=== PATIENT | female | born 1965 | race Hispanic/Latino ===

== ENCOUNTER 2020-06-02 14:13 | Outpatient (CLI) | payer BC, SELFPAY ==
--- NOTE | ~2020-06-02 | US_ITS ---
EXAMINATION: US thyroid DATE: 06/02/2020 14:44 INDICATION: Nontoxic single thyroid nodule TECHNIQUE: Multiple ultrasound images of the thyroid were obtained. COMPARISON: None. FINDINGS: The right thyroid lobe measures 4.8 x 1.6 x 2.1 cm. The left thyroid lobe measures 4.8 x 1.4 x 1.3 c m. The thyroid isthmus measures 1 mm in thickness. There is heterogeneous decreased echogenicity with coarsened echotexture and increased vascular flow throughout the thyroid without a discrete thyroid nodule. IMPRESSION: 1. Diffuse heterogeneously decreased echogenicity throughout the right thyroid consistent with Hashim tonio's thyroiditis without a discrete thyroid nodule. Reviewed, dictated and finalized at location A. IMPRESSION: 1. Diffuse heterogeneously decreased echogenicity throughout the right thyroid consistent with Annemarie's thyroiditis without a discrete thyroid nodule.
== END 2020-06-02 14:14 | disposition home or self-care (01) ==
PROVIDERS: PCP Internal Medicine; Visit Provider Otolaryngology
DX: E04.1 Nontoxic single thyroid nodule (principal)
CPT/HCPCS: 76536

== ENCOUNTER 2020-11-01 15:31 | Emergency (ER) | payer BC, SELFPAY ==
--- NOTE | ~2020-11-01 | XR_ITS ---
EXAMINATION: XR chest 2V DATE: 11/01/2020 15:59 INDICATION: Midsternal chest pain TECHNIQUE: PA and lateral views of the chest are obtained. COMPARISON: None available FINDINGS: The lungs are free of acute opacities. There is no pleural effusion or pneumothorax. The ca rdiomediastinal silhouette is normal. There is mild thoracic spondylosis. IMPRESSION: 1. No acute cardiopulmonary abnormality. Reviewed, dictated and finalized at location A. 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
--- NOTE | 2020-11-01 15:33 | ECG_ITS ---
Measurements Intervals [place] Rate: 70 P: 37 LA: 141 QRS: 20 QRSD: 85 T: 40 QT: 375 QTc: 405 Interpretive Statements SINUS RHYTHM VOLTAGE CRITERIA FOR LVH BORDERLINE ST ABNORMALITY- LATERAL LEADS BASELINE ARTIFACT- I, II, III, AVR, AVL, AVF, V1, V3, V5-V6 BORDERLINE ECG Electronically Signed On 11-02-2020 6:59:11 ANTHROPOLOGIST PHYSICAL by Chung Hogan D.O.
[2020-11-01 15:36] VITALS: BP 190/92; PULSE 73; RESP 23; TEMP 36.4; O2SAT 97
[2020-11-01 15:41] VITALS: PULSE 71
[2020-11-01] MEDS: ASPIRIN 81 MG CHEWABLE TABLET 324 MG PO (15:42)
[2020-11-01 15:46] VITALS: BP 142/83; PULSE 69; RESP 20; O2SAT 97
[2020-11-01 15:48] LABS: Basophils Percent Auto 0.4 % (0.2-1.2); Eosinophils Absolute Auto 0.2 K/mm3 (0-0.3); Hematocrit 45.1 % (37.0-47.0); Hemoglobin 15.1 g/dL (12.0-15.0); Immature Granulocyte Absolute 0.04 K/mm3 (0.00-0.031); Immature Granulocyte Percent A 0.4 % (0-0.5); Lymphocytes Absolute Auto 4.24 K/mm3 (0.9-3.2); Lymphocytes Percent Auto 39.3 % (18.3-44.2); Mean Corpuscular HGB Conc 33.5 g/dl (32-36); Mean Corpuscular Hemoglobin 28.7 pg (26-34); Mean Corpuscular Volume 85.6 fl (80-100); Mean Platelet Volume 11.4 fl (7.4-10.4); Monocytes Absolute Auto 0.7 K/mm3 (0.1-0.6); Monocytes Percent Auto 6.4 % (2.6-8.5); Neutrophils Absolute Auto 5.6 K/mm3 (1.3-6.7); Neutrophils Percent Auto 51.5 % (45.5-73.1); Platelet Count Result 249 k/mm3 (150-375); Red Blood Count 5.27 M/mm3 (4.2-5.4); Red Cell Distribution Width 12.5 % (11.5-14.5); White Blood Count 10.8 K/mm3 (4.5-10.0)
[2020-11-01 15:58] LABS: Prothrombin Time 13.3 Seconds (11.1-14.7)
[2020-11-01 15:59] LABS: Anion Gap 11 mmol/L (8-16); Blood Urea Nitrogen 11 mg/dL (7-17); Calcium 9.7 mg/dL (8.4-10.2); Carbon Dioxide 28 mmol/L (22-30); Chloride 103 mmol/L (98-107); Estimated CRCL calculation 81 ml/min; Estimated Glomerular Filt Rate > 60; Glucose 94 mg/dL (65-105); Partial Thromboplastin Time 28.3 SECONDS (22.3-36.8); Sodium 142 mmol/L (137-145)
[2020-11-01 16:05] VITALS: BP 126/76; PULSE 67; RESP 22; O2SAT 97
[2020-11-01 16:11] LABS: Troponin I < 0.012 ng/mL (0.000-0.034)
--- NOTE | 2020-11-01 16:26 | ED.CHESTPAIN ---
HPI - Chest Pain General Chief Complaint: Chest Pain Stated Complaint: chest pain Time Seen by Provider: 11/01/20 15:39 Source: patient Mode of arrival: ambulatory Limitations: no limitations History of Present Illness HPI narrative: 54-year-old female History of hypertension Presents for evaluation of episode of chest pain Patient reports that while she was still lying down this morning she had a episode which felt like a skipped or rapid heartbeat accompanied by discomfort in her chest which radiated to the left shoulder and upper arm There were not any associated symptoms such as shortness of breath diaphoresis nausea The entire episode lasted only a couple of seconds She has not had any similar episodes before or since She was telling her family about it and they urged her to be evaluated the ER because there is a family history of coronary disease Related Data Home Medications Medication Instructions Recorded Confirmed loratadine 10 mg tablet 10 mg PO DAILY 09/24/19 05/28/20 Allergies Allergy/AdvReac Type Severity Reaction Status Date / Time No Known Allergies Allergy Unverified 11/01/20 15:42 Review of Systems Review of Systems: All systems reviewed & are unremarkable except as noted in HPI and below Constitutional: Constitutional: Denies chills and Denies fever(s) ENT: Denies dizziness Cardiovascular: Cardiovascular: Reports as per HPI Respiratory: Respiratory: Denies cough and Denies dyspnea Gastrointestinal: Gastrointestinal: Denies nausea and Denies vomiting Musculoskeletal: Musculoskeletal: Denies myalgias and Denies arthralgias Neurologic: Denies dizziness and Denies weakness Hematologic/Lymphatic: Hematologic/Lymphatic: Denies easy bleeding and Denies easy bruising PMFSH Family History Family History Father Family history of diabetes mellitus in first degree relative Social History Social History Smoking status: Never smoker Alcohol intake: current Gender identity (if verbalized by the patient): Female Exam Const: General: no acute distress and alert Nutritional Appearance: well nourished Orientation/consciousness: patient oriented x3 HENMT: Head: normal to inspection Eyes: EOM: EOMs intact bilaterally Chest: Chest palpation & inspection: no tenderness Resp: Effort & Inspection: normal respiratory effort Auscultation: clear to auscultation bilaterally Cardio: Rate: regular rate Rhythm: regular rhythm Heart sounds: no murmurs GI: GI Palp: Yes Soft to palpation and No Tenderness to palpation present (GI) Skin: General skin exam: normal color Rashes: no rashes Neuro: General: patient oriented x3 and moves all extremities Speech: normal speech Extrem: General: no edema Course Course Emergency Course: Discussed with patient presentation would be very atypical for a cardiac event and does not really adjust her risk profile too much and will just need follow-up with her PCP to consider what further eval she might need Vital Signs Vital signs: Vital Signs Temperature 36.4 C 11/01/20 15:36 Pulse Rate 73 11/01/20 15:36 Respiratory Rate 23 H 11/01/20 15:36 Blood Pressure 190/92 H 11/01/20 15:36 Pulse Oximetry 97 11/01/20 15:36 Temperature 36.4 C 11/01/20 15:36 Pulse Rate 67 11/01/20 16:05 Respiratory Rate 22 H 11/01/20 16:05 Blood Pressure 126/76 11/01/20 16:05 Pulse Oximetry 97 11/01/20 16:05 MDM - Chest Pain Lab Data Result diagrams: 11/01/20 15:42 11/01/20 15:42 Labs: Lab Results 11/01/20 11/01/20 11/01/20 Range/Units 15:42 15:42 15:42 WBC 10.8 H (4.5-10.0) K/mm3 RBC 5.27 (4.2-5.4) M/mm3 Hgb 15.1 H (12.0-15.0) g/dL Hct 45.1 (37.0-47.0) % MCV 85.6 (80-100) fl MCH 28.7 (26-34) pg MCHC 33.5 (32-36) g/dl RDW 12.5 (11.5-14
[2020-11-01 17:03] VITALS: BP 110/76; PULSE 63; RESP 20; O2SAT 97
== END 2020-11-01 17:04 | disposition home or self-care (01) ==
PROVIDERS: Emergency Medicine; Emergency Provider Emergency Medicine; PCP Internal Medicine
DX: R07.9 Chest pain, unspecified (principal); I10 Essential (primary) hypertension; R94.31 Abnormal electrocardiogram [ECG] [EKG]
CPT/HCPCS: 36415; 71046; 80048; 84484; 85025; 85610; 85730; 93005; 99284; A9270

== ENCOUNTER 2021-11-23 08:00 | Outpatient (CLI) | payer BC, SELFPAY ==
--- NOTE | 2021-12-06 17:28 | WPDSLEEPSTUD ---
Sleep Study Date of Study: 11/23/21 <Maricarmen Cabral, DO - Last Filed: 12/07/21 13:26> Ordering Provider: Judson Brewer APRN <Maricarmen Cabral, DO - Last Filed: 12/07/21 13:26> Interpreting Physician: Maricarmen Cabral DO <Maricarmen Cabral, DO - Last Filed: 12/07/21 13:26> Sleep Study Type: Split Polysomnogram <Maricarmen Cabral, DO - Last Filed: 12/07/21 13:26> Height: 18.59 m <Maricarmen Cabral DO - Last Filed: 12/07/21 13:26> Weight: 74.843 kg <Maricarmen Cabral DO - Last Filed: 12/07/21 13:26> Body Mass Index: 0.2 <Maricarmen Cabral DO - Last Filed: 12/07/21 13:26> Neck Circumference (inches): 14.5 <Maricarmen Cabral DO - Last Filed: 12/07/21 13:26> [place]: 12 <Maricarmen Cabral DO - Last Filed: 12/07/21 13:26> Reason for Sleep Study Unrefreshing sleep, daytime hypersomnia <Maricarmen Cabral, DO - Last Filed: 12/07/21 13:26> Sleep History The patient is a 55-year-old female with hypothyroidism, asthma, GERD, seasonal allergies and previously diagnosed DARIANA that had a split study ordered by the pulmonary group for evaluation of DARIANA. The patient had a PSG in July 2017 that showed an AHI of 10.3. she denies awakening from sleep short of breath. She denies awakening at night with heartburn, belching or cough. She occasionally snores and is frequently loud enough that others complain. She rarely has trouble sleeping when she has a cold. She occasionally has breathing problems at night observed by others. She rarely sweats excessively at night. She occasionally has heart palpitations or irregular heartbeat during the night. She frequently falls asleep during the day but never while driving. She frequently has trouble at school or work due to sleepiness. She occasionally experiences loss of muscle tone when extremely emotional. She denies sleep paralysis and hypnagogic / hypnopompic hallucinations. She rarely has nightmares. She occasionally has thoughts racing through her mind. She occasionally feels sad or depressed. She rarely has anxiety. She frequently notices parts of her body jerk. She denies kicking during the night. She rarely has crawling and aching feelings in her legs. She frequently has leg pain during the night. She rarely grinds her teeth during sleep but occasionally awakens with morning jaw pain. She occasionally is bothered by pain during the day and occasionally awakened by pain during the night. She rarely wakes up feeling stiff in the morning. She occasionally wakes up with a sore or achy muscles. She occasionally wakes up with pain in the neck, spine and other joints. She goes to bed between midnight and 1:00 a.m. on both weekdays and weekends. It takes anywhere from 30-60 minutes to fall asleep. She typically does not wake up throughout the night. She wakes up between 630 and 7:00 a.m. on the weekdays and between 7 and 8:00 a.m. on the weekends. She typically gets between 6 and 7 hours of sleep per night. She will stay in bed between 30 and 60 minutes after waking up in the morning. She currently lives with her , 18-year-old grandchild and [id number]. She denies consuming any caffeinated beverages within 2 hours of bedtime. She does not engage in physical exercise before bedtime. She will occasionally read and watch television before falling asleep. She will occasionally take naps in the afternoon or the evening and they are refreshing. She will drink 1 caffeinated beverage per day. She drinks alcohol socially. She denies tobacco and recreational drug use. <Maricarmen Cabral DO - Last Filed: 12/07/21 13:26> [facility] Past Medical History Medical History: Medical History Gastro-esophageal reflux disease without esophagitis Hypothyroidism (acquired) Mild intermittent asthma with acute exacerbation Sleep apnea in adult <El
== END 2021-11-24 06:37 | disposition home or self-care (01) ==
PROVIDERS: PCP Internal Medicine; Visit Provider Nurse Practitioner Family
DX: G47.10 Hypersomnia, unspecified (principal); G47.33 Obstructive sleep apnea (adult) (pediatric)
CPT/HCPCS: 95811

== ENCOUNTER 2021-12-06 08:10 | Outpatient (CLI) | payer BC, SELFPAY ==
--- NOTE | ~2021-12-06 | MM_ITS ---
EXAMINATION: MM screening maude BI w bubba HISTORY: Screening TECHNIQUE: Craniocaudal and mediolateral oblique 3-D tomosynthesis images were obtained and synthetic 2-D images were generated. CAD analysis was submitted and interpreted. COMPARISON: No prior mammogram is available for comparison at this institution. BREAST PARENCHYMAL COMPOSITION: There are scattered areas of fibroglandular density. FINDINGS: There are bilateral asymmetries centered in the upper outer quadrants of both breasts. Poss ible architectural distortion in the outer aspect of the right breast. There are scattered benign-len earing calcifications. IMPRESSION: 1. Bilateral breast asymmetries and possible architectural distortion of the right breast. 2. Additional mammographic views and possible breast ultrasound are recommended. BI-RADS Category 0: Incomplete: Needs additional imaging evaluation. Reviewed, dictated and finalized at location B. 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 Bilateral breast asymmetries and possible architectural distortion of the ri ght breast. 2. Additional mammographic views and possible breast ultrasound are recommended . BI-RADS Category 0: Incomplete: Needs additional imaging evaluation.
== END 2021-12-06 08:11 | disposition home or self-care (01) ==
LOC: ANHIMG 08:13
PROVIDERS: PCP Internal Medicine; Visit Provider Advanced Practice Midwife
DX: Z12.31 Encounter for screening mammogram for malignant neoplasm of breast (principal)
CPT/HCPCS: 77063; 77067

== ENCOUNTER 2021-12-15 00:45 | Day surgery (SDC) | payer BC, SELFPAY ==
[2021-12-02 15:55] VITALS: BMI 30.8
--- NOTE | 2021-12-14 11:36 | PM.HPGS ---
History of Present Illness History of Present Illness Consent: Risks, benefits, and alternatives have been discussed and questions answered. Patient agrees to proceed with procedure. Chief complaint: abdominal pain Narrative: Svetlana Ugalde is a 55 year old female Referred for EGD to investigate burning upper abdominal pain Review of Systems Review of Systems: All systems reviewed & are unremarkable except as noted in HPI and below PMFSH Past Medical History Medical History Gastro-esophageal reflux disease without esophagitis Hypothyroidism (acquired) Mild intermittent asthma with acute exacerbation Sleep apnea in adult Family History Family History Father Family history of diabetes mellitus in first degree relative Social History Social History Smoking status: Never smoker Alcohol intake: current Drinks per week: 2 Alcohol use details: WINE Substance use: never Substance use type: does not use Gender identity (if verbalized by the patient): Female Spiritual care concerns: No Meds Home Medications and Allergies Home Medications Medication Instructions Recorded Confirmed Type albuterol sulfate 90 mcg/actuation 2 inhalation INHALATION Q4-6H #8.5 12/03/19 12/02/21 Rx aerosol inhaler gm loratadine 10 mg tablet See Rx Instructions .ROUTE 01/29/21 12/02/21 Rx .COMPLEX #90 tablet levothyroxine 50 mcg tablet 50 mcg PO DAILY #90 tablet 05/28/21 12/02/21 Rx Allergies Allergy/AdvReac Type Severity Reaction Status Date / Time No Known Allergies Allergy Verified 12/02/21 15:53 Exam Const: General: alert Orientation/consciousness: patient oriented x3 Resp: Auscultation: clear to auscultation bilaterally Cardio: Rhythm: regular rhythm GI: GI Palp: Yes Soft to palpation and No Tenderness to palpation present (GI) Neuro: General: patient oriented x3 Assessment and Plan Assessment and plan (1) Abdominal pain: Qualifiers: Abdominal location: upper abdomen, unspecified Qualified Code(s): R10.10 - Upper abdominal pain, unspecified Code(s): R10.9 - Unspecified abdominal pain Status: Acute Assessment and Plan: EGD with possible biopsy or dilatation or cautery.
--- NOTE | 2021-12-15 08:17 | WPDANESEPPF ---
Anes - Initial Pre Proc Eval Procedure: Operation Date: 12/15/21 10:00 Proposed Procedures p Esophagogastroduodenoscopy - Tyron Rocha MD Date/Time: 12/15/21 08:17 Surgeon: Tyron Rocha MD Pre Op Diagnosis: abdominal pain Patient Data Age: 55 Gender: F Height: 1.55 m Weight: 74 kg Allergies Allergy/AdvReac Type Severity Reaction Status Date / Time No Known Allergies Allergy Verified 12/15/21 08:17 Home Medications Medication Instructions Recorded Confirmed Type albuterol sulfate 90 mcg/actuation 2 inhalation INHALATION Q4-6H #8.5 12/03/19 12/02/21 Rx aerosol inhaler gm loratadine 10 mg tablet See Rx Instructions .ROUTE 01/29/21 12/02/21 Rx .COMPLEX #90 tablet levothyroxine 50 mcg tablet 50 mcg PO DAILY #90 tablet 05/28/21 12/02/21 Rx Patient hx anesthesia problems: none Family hx anesthesia problems: none Results Review: All pre-operative results and documents have been reviewed as part of the pre-operative evaluation. [facility] Past Medical History Medical History (Updated 12/15/21 @ 08:18 by Mao Torres MD) Gastro-esophageal reflux disease without esophagitis Hypothyroidism (acquired) Mild intermittent asthma with acute exacerbation Obesity (BMI 30.0-34.9) Sleep apnea in adult Family History Family History Father Family history of diabetes mellitus in first degree relative Social History Social History Smoking status: Never smoker Alcohol intake: current Drinks per week: 2 Alcohol use details: WINE Substance use: never Substance use type: does not use Living arrangements: with family Gender identity (if verbalized by the patient): Female Spiritual care concerns: No Anes - Eval Final PreProcedure Day of Procedure 12/15/21 08:17 Patient weight: overweight Heart: regular rate and rhythm Lungs: clear to auscultation and normal air movement Airway: Mallampati scale class II Neurological: alert and oriented Last oral intake: >/= 8 hours ASA classification: II Emergent: no Anesthetic plan: proceed Anesthesia type and monitoring: general GIVS Results Review: All pre-operative results and documents have been reviewed as part of the pre-operative evaluation. Informed Consent: The patient's anesthetic plan and its attendant risks and benefits were discussed with the patient/family/POA. Questions were solicited and answers provided to the satisfaction of the patient/family/POA.
[2021-12-15 08:18] VITALS: BP 125/75; PULSE 64; RESP 18; TEMP 36.4; O2SAT 98
[2021-12-15] MEDS: LACTATED RINGERS 1,000 ML 150 ML IV CONT (08:27)
--- NOTE | 2021-12-15 08:52 | WPDGICN ---
Assessment and Plan Assessment and plan (1) Abdominal pain: Qualifiers: Abdominal location: upper abdomen, unspecified Qualified Code(s): R10.10 - Upper abdominal pain, unspecified Code(s): R10.9 - Unspecified abdominal pain Status: Acute Assessment and Plan: EGD with possible biopsy or dilatation or cautery. GI Consult Note Consult date/time: 12/15/21 08:52 HPI: Svetlana Ugalde is a 55 year old female who was referred for investigation of epigastric and abdominal pain. States that she has had discomfort in her upper abdomen for several years, but now for the past month she has had continuous pain and tenderness particularly with palpation. This began around Radha time and was quite severe for a few days. She denies vomiting or nausea. She does not take anti-inflammatory medications. Her weight has been stable. Pain at times feels as though she has swallowed pepper in that it is a very burning sensation. She also noticed recently that occasion she would have some blood-tinged mucus in her stool. Review of Systems Review of Systems: All systems reviewed & are unremarkable except as noted in HPI and below PMFSH Past Medical History Medical History Gastro-esophageal reflux disease without esophagitis Hypothyroidism (acquired) Mild intermittent asthma with acute exacerbation Obesity (BMI 30.0-34.9) Sleep apnea in adult Family History Family History Father Family history of diabetes mellitus in first degree relative Social History Social History Smoking status: Never smoker Alcohol intake: current Drinks per week: 2 Alcohol use details: WINE Substance use: never Substance use type: does not use Living arrangements: with family Gender identity (if verbalized by the patient): Female Spiritual care concerns: No Meds Home Medications and Allergies Home Medications Medication Instructions Recorded Confirmed Type albuterol sulfate 90 mcg/actuation 2 inhalation INHALATION Q4-6H #8.5 12/03/19 12/02/21 Rx aerosol inhaler gm loratadine 10 mg tablet See Rx Instructions .ROUTE 01/29/21 12/02/21 Rx .COMPLEX #90 tablet levothyroxine 50 mcg tablet 50 mcg PO DAILY #90 tablet 05/28/21 12/02/21 Rx Allergies Allergy/AdvReac Type Severity Reaction Status Date / Time No Known Allergies Allergy Verified 12/15/21 08:17 Vital Signs Vital Signs - 24 hr 12/15/21 08:18 Temperature 36.4 C L Pulse Rate 64 Respiratory Rate 18 Blood Pressure 125/75 Pulse Oximetry 98 Exam Const: General: alert Orientation/consciousness: patient oriented x3 Resp: Auscultation: clear to auscultation bilaterally Cardio: Rhythm: regular rhythm GI: GI Palp: Yes Soft to palpation and No Tenderness to palpation present (GI) Neuro: General: patient oriented x3
[2021-12-15 09:33] VITALS: BP 105/67; PULSE 64; RESP 17; O2SAT 99
[2021-12-15 09:43] VITALS: BP 107/71; PULSE 63; RESP 19; O2SAT 100
[2021-12-15 09:53] VITALS: BP 124/80; PULSE 62; RESP 16; O2SAT 100
== END 2021-12-15 10:00 | disposition home or self-care (01) ==
PROVIDERS: PCP Internal Medicine; Visit Provider Internal Medicine Gastroenterology
PROC: 0DJ08ZZ Inspection of Upper Intestinal Tract, Via Natural or Artificial Opening Endoscopic (ICD-10-PCS; CPT 43235; principal; 2021-12-15 10:00)
DX: K21.9 Gastro-esophageal reflux disease without esophagitis (principal); J45.20 Mild intermittent asthma, uncomplicated; E03.9 Hypothyroidism, unspecified; G47.30 Sleep apnea, unspecified; E66.9 Obesity, unspecified; Z68.31 Body mass index [BMI] 31.0-31.9, adult; Z79.51 Long term (current) use of inhaled steroids
CPT/HCPCS: 43239; 87081; 88305; J2704; J7120

== ENCOUNTER 2022-01-07 09:17 | Outpatient (CLI) | payer BC, SELFPAY ==
--- NOTE | ~2022-01-07 | US_ITS ---
EXAMINATION: US abdomen complete DATE: 01/07/2022 10:04 INDICATION: Epigastric pain TECHNIQUE: Multiple grayscale and Doppler ultrasound images of the abdomen were obtained. COMPARISON: None available FINDINGS: The head, body, and tail of the pancreas are normal. The liver is normal with normal echoge nicity and echotexture. No surface nodularity. Normal hepatopetal flow in the main portal vein. The g allbladder is normal with no abnormal wall thickening, pericholecystic fluid or stones. The normal co mmon bile duct measures 4 mm. There was no sonographic Magana sign. The visualized portions of the ao rta and inferior vena cava are normal. The right kidney measures 10.2 x 3.8 x 4.5 cm. The left kidney measures 11.2 x 4.5 x 5.2 cm. The kidn eys demonstrate normal parenchymal echogenicity. There is no hydronephrosis. The spleen is normal in appearance and measures 9.9 cm. IMPRESSION: 1. No sonographic correlate for the patient's symptoms. 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
== END 2022-01-07 09:18 | disposition home or self-care (01) ==
LOC: ANHIMG 09:18
PROVIDERS: PCP Internal Medicine; Visit Provider Internal Medicine Gastroenterology
DX: R10.13 Epigastric pain (principal)
CPT/HCPCS: 76700

== ENCOUNTER 2022-03-30 22:04 | Emergency (ER) | payer BC, SELFPAY ==
--- NOTE | ~2022-03-30 | XR_ITS ---
EXAM: XR hand RT min 3V HISTORY: laceration TO TOP OF 5TH METACARPAL, r/o FB/glass COMPARISON: None available FINDINGS: Decreased mineralization. No fracture or dislocation. No lytic or blastic lesion. Joint sp aces maintained. No erosion or periosteal change. Soft tissues within normal limits. IMPRESSION: No acute osseous finding in the right hand. Reviewed, dictated and finalized at location K.
[2022-03-30 22:11] VITALS: BP 153/82; PULSE 98; RESP 18; TEMP 37; O2SAT 98
--- NOTE | 2022-03-30 22:32 | ED.WOUNDLAC ---
HPI - Wound/Laceration General Chief Complaint: Wound/Laceration Stated Complaint: injury rt hand/laceration Time Seen by Provider: 03/30/22 22:22 Source: patient Mode of arrival: ambulatory Limitations: no limitations History of Present Illness HPI narrative: Patient is a 56-year-old female who presents the ED with report of a laceration to her right hand. Patient reports she sustained this laceration around 8 AM this morning when she was washing a drinking glass and it broke, cutting her hand. She put a Band-Aid on it and the bleeding was controlled. She then began bleeding again tonight, which prompted her to come to the ED. She was concerned for infection. Denies any other injuries or significant pain. Tetanus status unknown. No numbness, tingling, weakness. Related Data Allergies Allergy/AdvReac Type Severity Reaction Status Date / Time No Known Allergies Allergy Verified 03/30/22 22:14 Review of Systems Review of Systems: CONSTITUTIONAL: Denies fever. SKIN: Reports laceration to right hand. MUSCULOSKELETAL: Denies joint pain. NEUROLOGIC: Denies tingling, numbness, or weakness. All systems reviewed & are unremarkable except as noted in HPI and below PMFSH Past Medical History Medical History (Updated 03/30/22 @ 23:38 by Jania Segovia PA-C) Gastro-esophageal reflux disease without esophagitis Hypothyroidism (acquired) Mild intermittent asthma with acute exacerbation Obesity (BMI 30.0-34.9) Sleep apnea in adult Surgical History Surgical History (Updated 03/30/22 @ 23:36 by Jania Segovia PA-C) History of tubal ligation Family History Family History Father Family history of diabetes mellitus in first degree relative Social History Social History Smoking status: Never smoker Alcohol intake: current Drinks per week: 2 Alcohol use details: WINE Substance use: never Substance use type: does not use Gender identity (if verbalized by the patient): Female Spiritual care concerns: No Exam Narrative: GENERAL: Well appearing, well-nourished, non-toxic, in no acute distress. HEAD: Normocephalic, atraumatic. NECK: Supple. No adenopathy, no masses. RESPIRATORY: Airway patent, respirations nonlabored. CARDIOVASCULAR: Regular rate and rhythm without murmurs, rubs, or gallops. Radial pulses 2+ and equal bilaterally. MUSCULOSKELETAL: Moves all extremities. Strength/ROM/sensation intact. 2.5 cm V-shaped laceration to medial edge of right hand, near fifth MCP joint but not involving joint. SKIN: Warm, dry, normal color. No rashes. NEURO: A&O X3. Speech clear. Cranial nerves II-XII grossly intact. Steady gait. No ataxic movements. PSYCHIATRIC: Appropriate mood and affect. Normal interaction. Course Vital Signs Vital signs: Vital Signs Temperature 98.6 F 03/30/22 22:11 Pulse Rate 98 03/30/22 22:11 Respiratory Rate 18 03/30/22 22:11 Blood Pressure 153/82 H 03/30/22 22:11 Pulse Oximetry 98 03/30/22 22:11 Temperature 98.6 F 03/30/22 22:11 Pulse Rate 73 03/31/22 00:07 Respiratory Rate 16 03/31/22 00:07 Blood Pressure 148/87 H 03/31/22 00:07 Pulse Oximetry 100 03/31/22 00:07 Procedures Laceration Laceration 1: Date: 03/30/22 Time: 23:15 Site: hand Side (If applicable): right Size (cm): 2.5 Description: linear, clean and other (V-shaped) Depth: simple, single layer Local Anesthetic: lidocaine 1% and with epi Amount of anesthesia used (mL): 5 Pre-repair: wound explored and irrigated extensively ====== Skin Level ====== Skin layer closed with: nylon Size (cm): 4-0 Number of sutures: 5 Technique: simple, interrupted ====== Subcutaneous Layer ====== ====== Muscle Layer ====== ====== Tendon Layer ====== MDM - Wound/Laceration MDM Na
[2022-03-30] MEDS: TETANUS,DIPHTHERIA,AC PERTUSSIS ADULT (0.5 ML) BOOSTRIX IM (22:45)
[2022-03-30] MEDS: CEPHALEXIN 500 MG CAPSULE PO (23:44)
[2022-03-31 00:07] VITALS: BP 148/87; PULSE 73; RESP 16; O2SAT 100
== END 2022-03-31 00:10 | disposition home or self-care (01) ==
PROVIDERS: Emergency Provider Emergency Medicine; PCP Family Medicine
DX: S61.411A Laceration without foreign body of right hand, initial encounter (principal); Z23 Encounter for immunization; K21.9 Gastro-esophageal reflux disease without esophagitis; E03.9 Hypothyroidism, unspecified; J45.20 Mild intermittent asthma, uncomplicated; E66.9 Obesity, unspecified; Z68.30 Body mass index [BMI] 30.0-30.9, adult; G47.30 Sleep apnea, unspecified; W25.XXXA Contact with sharp glass, initial encounter
CPT/HCPCS: 12001; 73130; 90471; 90715; 99283; A9270

== ENCOUNTER 2022-07-06 10:32 | Emergency (ER) | payer BC, SELFPAY ==
--- NOTE | ~2022-07-06 | CT_ITS ---
EXAMINATION: CT abdomen pelvis w con DATE: 07/06/2022 11:57 INDICATION: Left lower quadrant abdominal pain and diarrhea post recent trip to [place]. TECHNIQUE: Computed tomography (CT) of the abdomen and pelvis was performed with 100 mL Omnipaque-300 intravenous contrast. Automated exposure control and iterative reconstruction technique were employe d. The dose-length product was 530.15 mGy-cm. COMPARISON: None FINDINGS: Lung bases are clear. Heart size is normal. No pericardial or pleural effusion. Liver, gallbladder, s pleen, pancreas, bilateral adrenal glands and kidneys are normal. Fluid throughout the small bowel an d colon consistent with diarrhea. There is edematous-appearing wall thickening diffusely throughout t he colon as well as involving multiple loops of ileum in the right lower quadrant with associated mil d mesenteric hyperemia consistent with an enterocolitis which given the distribution is most likely i nfectious in etiology. There are a few sigmoid diverticula without adjacent inflammatory stranding to suggest diverticulitis. Normal appendix. Small amount of likely reactive ascites in the pelvis. No a bscess or free intraperitoneal gas. Bladder, anteverted uterus and bilateral adnexa are unremarkable. Small fat-containing indirect left inguinal hernia. No pathologically enlarged abdominal or pelvic l ymphadenopathy. Severe right-sided facet osteoarthritis at L5-S1. There is also mild bilateral sacroi liitis with developing ankle is grossly posterior aspect of the bilateral sacroiliac joints. IMPRESSION: 1. Enterocolitis with small amount of likely reactive ascites in the pelvis. Given distribution and p rovided clinical history would favor infectious over either inflammatory or ischemic etiologies. Reviewed, dictated and finalized at location A. IMPRESSION: 1. Enterocolitis with small amount of likely reactive ascites in the pelvis. Gi jimbo distribution and provided clinical history would favor infectious over eith er inflammatory or ischemic etiologies.
[2022-07-06 10:33] VITALS: BP 154/97; PULSE 90; RESP 16; TEMP 36.8; O2SAT 99
--- NOTE | 2022-07-06 10:42 | PC.NURSE ---
pt unable to provide urine sample at this time and declining straight cath.
[2022-07-06 11:04] LABS: Basophils Percent Auto 0.3 % (0.2-1.2); Eosinophils Absolute Auto 0.1 K/mm3 (0-0.3); Eosinophils Percent Auto 0.5 % (0-4.4); Hematocrit 47.2 % (37.0-47.0); Hemoglobin 15.8 g/dL (12.0-15.0); Immature Granulocyte Absolute 0.06 K/mm3 (0.00-0.031); Immature Granulocyte Percent A 0.4 % (0-0.5); Lymphocytes Absolute Auto 2.39 K/mm3 (0.9-3.2); Lymphocytes Percent Auto 15.4 % (18.3-44.2); Mean Corpuscular HGB Conc 33.5 g/dl (32-36); Mean Corpuscular Hemoglobin 28.8 pg (26-34); Mean Platelet Volume 11.4 fl (7.4-10.4); Monocytes Absolute Auto 0.9 K/mm3 (0.1-0.6); Monocytes Percent Auto 5.7 % (2.6-8.5); Neutrophils Absolute Auto 12.1 K/mm3 (1.3-6.7); Neutrophils Percent Auto 77.7 % (45.5-73.1); Platelet Count Result 253 k/mm3 (150-375); Red Blood Count 5.49 M/mm3 (4.2-5.4); Red Cell Distribution Width 13.2 % (11.5-14.5); White Blood Count 15.5 K/mm3 (4.5-10.0)
[2022-07-06] MEDS: FAMOTIDINE 20 MG/2 ML VIAL IV PUSH (11:12)
[2022-07-06] MEDS: ONDANSETRON INJ 4 MG/2 ML VIAL IV PUSH (11:12)
[2022-07-06] MEDS: MAG HYDROX/AL HYDROX/SIMETH 30 ML UDC PO (11:13)
[2022-07-06] MEDS: DICYCLOMINE HCL 10 MG CAPSULE 20 MG PO (11:13)
[2022-07-06 11:32] LABS: Alanine Aminotransferase 36 U/L (6-35); Albumin Level 4.3 g/dL (3.5-5.1); Alkaline Phosphatase 120 U/L (38-126); Anion Gap 11 mmol/L (8-16); Aspartate Amino Transferase 41 U/L (14-36); Bilirubin,Total 0.7 mg/dL (0.2-1.3); Blood Urea Nitrogen 8 mg/dL (7-17); Calcium 8.9 mg/dL (8.4-10.2); Carbon Dioxide 24 mmol/L (22-30); Chloride 99 mmol/L (98-107); Estimated CRCL calculation 93 ml/min; Estimated Glomerular Filt Rate > 60; Glucose 120 mg/dL (65-110); Lipase 71 U/L (23-300); Potassium 4.2 mmol/L (3.4-5.0); Sodium 134 mmol/L (137-145)
--- NOTE | 2022-07-06 11:47 | ED.ABDPAIN ---
HPI - Abdominal Pain General Chief Complaint: Abdominal Pain Stated Complaint: abd pain Time Seen by Provider: 07/06/22 10:47 History of Present Illness HPI narrative: 48-year-old female states that she has been having some nausea and vomiting and diarrhea for the past day, she initially had some diarrhea about 4 weeks ago but this had resolved completely for the last 2 weeks. Endorsing some left-sided abdominal discomfort. Related Data Allergies Allergy/AdvReac Type Severity Reaction Status Date / Time iohexol AdvReac Dyspnea / Verified 07/06/22 12:28 [From contrast - CT, X-RAY] SOB Review of Systems Review of Systems: CONST: No fever. HEENT: No sore throat C/V: No chest pain RESP: No cough GI: Reports abdominal pain, nausea, vomiting[, diarrhea] : No dysuria. M/S: No joint pain. SKIN: No rash. NEURO: [No headache or focal numbness or weakness] PSYCH: [No depression] PMFSH Past Medical History Medical History Gastro-esophageal reflux disease without esophagitis Hypothyroidism (acquired) Mild intermittent asthma with acute exacerbation Obesity (BMI 30.0-34.9) Sleep apnea in adult Surgical History Surgical History History of tubal ligation Family History Family History Father Family history of diabetes mellitus in first degree relative Social History Social History Smoking status: Never smoker Alcohol intake: current Drinks per week: 2 Alcohol use details: WINE Substance use: never Substance use type: does not use Gender identity (if verbalized by the patient): Female Spiritual care concerns: No Exam Narrative: EXAMINATION OF ORGAN SYSTEMS/BODY AREAS: Constitutional: Vital signs per nursing GENERAL:[No acute distress, non-toxic appearing.] HEAD: Normal with no signs of head trauma. EYES: EOMI, conjunctiva normal ENT: Hearing grossly intact LUNGS: Nonlabored breathing. HEART: [Regular rate and rhythm] ABD: [Soft], [tender to palpation] left side EXT: Normal range of motion SKIN: [No rashes or lesions.] NEURO: [Alert and oriented x 3. No gross focal sensory or strength deficits.] PSYCH: Normal affect Course Vital Signs Vital signs: Vital Signs Temperature 98.2 F 07/06/22 10:33 Pulse Rate 90 07/06/22 10:33 Respiratory Rate 16 07/06/22 10:33 Blood Pressure 154/97 H 07/06/22 10:33 Pulse Oximetry 99 07/06/22 10:33 Oxygen Delivery Room Air 07/06/22 10:33 Temperature 98.2 F 07/06/22 10:33 Pulse Rate 89 07/06/22 12:13 Respiratory Rate 16 07/06/22 12:13 Blood Pressure 148/93 H 07/06/22 12:13 Pulse Oximetry 98 07/06/22 12:13 Oxygen Delivery Room Air 07/06/22 10:33 MDM - Abdominal Pain MDM Narrative Medical decision making narrative: Electronic medical record was reviewed. Patient presented to the ED with complaint of [abdominal pain and vomiting and diarrhea.] Vitals [were within acceptable limits]. Physical exam revealed [tenderness to palpation in left sided abdomen]. Based on the patient's history and physical exam, my differential includes but is not limited to [gastritis, gastroenteritis, peritonitis, diverticulitis]. [IV access was established by nursing staff. Patient was given zofran, famotidine]. CBC, BMP, lipase, LFTs, bilirubin and alk phos were obtained. Labs were pertinent for slightly elevated white count, positive UA. [Decision was made to obtain a CT-abdomen to evaluate for acute abdominal process. CT-abdomen is unremarkable for acute intra-abdominal process other than enterocolitis, no signs of hydronephrosis, cholecystitis, appendicitis.] On reevaluation, the patient states that they are feeling much better. There were no witnessed episodes of vomiting in the emergency department. They are not complaining of any new abdomin
[2022-07-06 11:54] LABS: Appearance Urine Clear (Clear); Bilirubin Urine Negative (Negative); Blood Urine Negative (Negative); Color Urine Yellow (Yellow); Glucose Urine UA Negative (Negative); Ketones Urine 1+ mg/dL (Negative); Leukocyte Esterase Ur 1+ LEU/UL (Negative); Nitrate Urine Negative (Negative); Protein Urine Negative (Negative); Urobilinogen Urine 0.2 mg/dL (<2.0)
[2022-07-06 12:00] LABS: Bacteria Urine Trace /hpf; Mucus Urine Few /lpf; RBC Urine 0-2 /hpf (0-2); Squamous Epithelial Cell Urine Few /hpf (Few)
[2022-07-06 12:07] LABS: Add Urine Microscopic? YES
[2022-07-06 12:13] VITALS: BP 148/93; PULSE 89; RESP 16; O2SAT 98
[2022-07-06] MEDS: diphenhydrAMINE HCl INJ 50 MG/ML VIAL 25 MG IV PUSH (13:18)
== END 2022-07-06 13:21 | disposition home or self-care (01) ==
PROVIDERS: Emergency Provider Emergency Medicine; PCP Family Medicine
DX: K52.9 Noninfective gastroenteritis and colitis, unspecified (principal); K21.9 Gastro-esophageal reflux disease without esophagitis; E03.9 Hypothyroidism, unspecified; J45.20 Mild intermittent asthma, uncomplicated; E66.9 Obesity, unspecified; Z68.30 Body mass index [BMI] 30.0-30.9, adult; G47.30 Sleep apnea, unspecified
CPT/HCPCS: 36415; 74177; 80053; 81001; 83690; 85025; 96374; 96375; 99284; A9270; J1200; J2405; Q9967

== ENCOUNTER 2022-08-22 10:42 | Outpatient (CLI) | payer BC, SELFPAY ==
[2022-08-22 20:00] LABS: Cholesterol 198 mg/dL (0-200); HDL Direct 33 mg/dL; Triglycerides 176 mg/dL (<150)
[2022-08-22 20:09] LABS: Vitamin D 25 Hydroxy 36.6 ng/mL
[2022-08-22 20:11] LABS: LDL Cholesterol Direct 125 mg/dL
[2022-08-22 21:19] LABS: Hemoglobin A1C 5.7 % (<5.7)
== END 2022-08-22 10:43 | disposition home or self-care (01) ==
LOC: ANHGOSHLAB 10:43
PROVIDERS: PCP Family Medicine; Visit Provider Family Medicine
DX: R73.09 Other abnormal glucose (principal); E04.1 Nontoxic single thyroid nodule; R53.83 Other fatigue; Z13.220 Encounter for screening for lipoid disorders
CPT/HCPCS: 36415; 80061; 82306; 83036

== ENCOUNTER 2023-07-21 10:01 | Outpatient (CLI) | payer BC, SELFPAY ==
[2023-07-21 12:01] LABS: Basophils Absolute Auto 0.1 K/mm3 (0.0-0.1); Basophils Percent Auto 0.8 % (0.2-1.2); Eosinophils Absolute Auto 0.3 K/mm3 (0-0.3); Eosinophils Percent Auto 3.8 % (0-4.4); Hematocrit 45.8 % (37.0-47.0); Immature Granulocyte Absolute 0.02 K/mm3 (0.00-0.031); Immature Granulocyte Percent A 0.3 % (0-0.5); Lymphocytes Absolute Auto 3.51 K/mm3 (0.9-3.2); Lymphocytes Percent Auto 53.2 % (18.3-44.2); Mean Corpuscular HGB Conc 32.8 g/dl (32-36); Mean Corpuscular Hemoglobin 28.5 pg (26-34); Mean Corpuscular Volume 87.1 fl (80-100); Mean Platelet Volume 12.4 fl (7.4-10.4); Monocytes Absolute Auto 0.6 K/mm3 (0.1-0.6); Monocytes Percent Auto 8.3 % (2.6-8.5); Neutrophils Absolute Auto 2.2 K/mm3 (1.3-6.7); Neutrophils Percent Auto 33.6 % (45.5-73.1); Platelet Count Result 204 k/mm3 (150-375); Red Blood Count 5.26 M/mm3 (4.2-5.4); Red Cell Distribution Width 12.9 % (11.5-14.5); White Blood Count 6.6 K/mm3 (4.5-10.0)
[2023-07-21 12:16] LABS: Alanine Aminotransferase 54 U/L (6-35); Albumin Level 4.5 g/dL (3.5-5.1); Alkaline Phosphatase 109 U/L (38-126); Anion Gap 8 mmol/L (8-16); Aspartate Amino Transferase 90 U/L (14-36); Bilirubin,Total 0.7 mg/dL (0.2-1.3); Blood Urea Nitrogen 11 mg/dL (7-17); Calcium 9.1 mg/dL (8.4-10.2); Carbon Dioxide 27 mmol/L (22-30); Chloride 104 mmol/L (98-107); Cholesterol 211 mg/dL (0-200); Estimated Glomerular Filt Rate > 60; Glucose 100 mg/dL (65-110); HDL Direct 32 mg/dL; Potassium 4.1 mmol/L (3.4-5.0); Sodium 139 mmol/L (137-145); Triglycerides 188 mg/dL (<150)
[2023-07-21 12:27] LABS: LDL Cholesterol Direct 137 mg/dL
[2023-07-21 14:08] LABS: Free T4 Free Thyroxine Reflex 1.45 ng/dL (0.78-2.19)
[2023-07-21 15:24] LABS: Total Triiodothyronine (T3) 2.04 NG/ML (0.97-1.69)
== END 2023-07-21 10:02 | disposition home or self-care (01) ==
LOC: ANHGOSHLAB 10:03
PROVIDERS: PCP Family Medicine; Visit Provider Family Medicine
DX: R53.83 Other fatigue (principal); Z13.29 Encounter for screening for other suspected endocrine disorder; Z13.228 Encounter for screening for other metabolic disorders; Z13.220 Encounter for screening for lipoid disorders; E11.9 Type 2 diabetes mellitus without complications
CPT/HCPCS: 36415; 80053; 80061; 84439; 84443; 84480; 85025

== ENCOUNTER 2023-08-03 14:02 | Outpatient (CLI) | payer BC, SELFPAY ==
--- NOTE | 2023-08-07 16:34 | WPDHOLTEREM ---
Holter/Event Monitor Holter/Event Monitor Date of procedure: 08/03/23 Holter/Event Procedure: 48 Hr Holter Monitor Indications: Palpitations Conclusion: 1. 48 hour holter monitor on 08/03/23. 2. Underlying rhythm is sinus rhythm. HR range 55-109 bpm; average HR 69 bpm. 3. There are 3 premature supraventricular complexes. No supraventricular tachycardia. 4. No premature ventricular complexes. No ventricular tachycardia. 5. No sinoatrial or atrioventricular blocks. No significant pauses greater than 2 seconds. 6. No symptoms available for correlation.
== END 2023-08-03 14:03 | disposition home or self-care (01) ==
LOC: ANHCARD 14:03
PROVIDERS: PCP Family Medicine; Visit Provider Family Medicine
DX: R00.2 Palpitations (principal)
CPT/HCPCS: 93225; 93226

== ENCOUNTER 2023-08-08 09:19 | Outpatient (CLI) | payer BC, SELFPAY ==
[2023-08-08 17:10] LABS: Alanine Aminotransferase 56 U/L (6-35); Albumin Level 4.2 g/dL (3.5-5.1); Alkaline Phosphatase 116 U/L (38-126); Anion Gap 4 mmol/L (8-16); Aspartate Amino Transferase 58 U/L (14-36); Bilirubin,Total 0.6 mg/dL (0.2-1.3); Blood Urea Nitrogen 12 mg/dL (7-17); Calcium 8.8 mg/dL (8.4-10.2); Carbon Dioxide 32 mmol/L (22-30); Chloride 103 mmol/L (98-107); Estimated Glomerular Filt Rate > 60; Glucose 100 mg/dL (65-110); Potassium 4.2 mmol/L (3.4-5.0); Sodium 139 mmol/L (137-145)
== END 2023-08-08 09:20 | disposition home or self-care (01) ==
LOC: ANHGOSHLAB 09:21
PROVIDERS: PCP Family Medicine; Visit Provider Family Medicine
DX: Z13.228 Encounter for screening for other metabolic disorders (principal)
CPT/HCPCS: 36415; 80053

== ENCOUNTER 2023-10-20 11:52 | Outpatient (CLI) | payer BC, SELFPAY ==
[2023-10-20 19:48] LABS: Alanine Aminotransferase 45 U/L (6-35); Aspartate Amino Transferase 69 U/L (14-36)
== END 2023-10-20 11:53 | disposition home or self-care (01) ==
LOC: ANHGOSHLAB 11:53
PROVIDERS: PCP Family Medicine; Visit Provider Family Medicine
DX: E03.9 Hypothyroidism, unspecified (principal); R74.8 Abnormal levels of other serum enzymes
CPT/HCPCS: 36415; 84443; 84450; 84460

== ENCOUNTER 2023-10-23 09:58 | Outpatient (CLI) | payer BC, SELFPAY ==
[2023-10-23 21:16] LABS: Hepatitis B Surface Antigen Negative (Negative)
[2023-10-23 21:22] LABS: HAV RESULT Negative (Negative); Hepatitis B Core IgM Result Negative (Negative)
[2023-10-23 21:34] LABS: Hepatitis C Virus Antibody Negative (Negative)
== END 2023-10-23 09:59 | disposition home or self-care (01) ==
PROVIDERS: PCP Family Medicine; Visit Provider Family Medicine
DX: R74.01 Elevation of levels of liver transaminase levels (principal)
CPT/HCPCS: 36415; 80074; 82728; 86038; 86039

== ENCOUNTER 2023-11-03 08:15 | Outpatient (CLI) | payer BC, SELFPAY ==
[2023-11-08 16:55] LABS: Scleroderma 70 Antibody <1.0
== END 2023-11-03 08:16 | disposition home or self-care (01) ==
LOC: ANHGOSHLAB 08:17
PROVIDERS: PCP Family Medicine; Visit Provider Family Medicine
DX: R76.8 Other specified abnormal immunological findings in serum (principal)
CPT/HCPCS: 36415; 86225; 86235

== ENCOUNTER 2023-11-08 07:35 | Outpatient (CLI) | payer BC, SELFPAY ==
--- NOTE | ~2023-11-08 | US_ITS ---
EXAMINATION: US abdomen limited DATE: 11/08/2023 09:09 INDICATION: Abnormal liver enzymes TECHNIQUE: Multiple grayscale and Doppler ultrasound images of the abdomen were obtained. COMPARISON: 01/07/2022 FINDINGS: The head and body of the pancreas are normal. The pancreatic tail is obscured by bowel gas. The liver is normal with normal echogenicity and echotexture. No surface nodularity. Normal hepatope deja flow in the main portal vein. The gallbladder is normal with no abnormal wall thickening, pericho lecystic fluid or stones. The normal common bile duct measures 5 mm. There was no sonographic Magana sign. IMPRESSION: 1. No sonographic correlate for the patient's symptoms. Reviewed, dictated and finalized at location B. 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
--- NOTE | ~2023-11-08 | US_ITS ---
EXAMINATION: US thyroid DATE: 11/08/2023 09:08 INDICATION: Autoimmune thyroiditis TECHNIQUE: Multiple ultrasound images of the thyroid were obtained. COMPARISON: None. FINDINGS: The right thyroid lobe measures 5.1 x 1.8 x 1.6 cm. The left thyroid lobe measures 4.6 x 1.4 x 1.8 c m. No discrete nodules identified. There is heterogeneous echogenicity and coarsened echotexture wit h mildly increased vascular flow throughout the thyroid. On a few of the images this yields a pseudon odular appearance typical for Annemarie's thyroiditis. IMPRESSION: 1. Heterogeneous thyroid echogenicity and diffuse mild increased vascular flow on color Doppler witho ut discrete nodules. 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 Reviewed, dictated and finalized at location A. LE COPER IMPRESSION: 1. Heterogeneous thyroid echogenicity and diffuse mild increased vascular flow on color Doppler without discrete nodules. 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
== END 2023-11-08 07:36 | disposition home or self-care (01) ==
PROVIDERS: PCP Family Medicine; Visit Provider Family Medicine
DX: E06.3 Autoimmune thyroiditis (principal); R74.8 Abnormal levels of other serum enzymes
CPT/HCPCS: 76536; 76705

== ENCOUNTER 2023-11-10 01:59 | Day surgery (SDC) | payer BC, SELFPAY ==
[2023-10-25 08:52] VITALS: BMI 31.2
--- NOTE | 2023-11-08 08:25 | SUR.PREOP ---
Patient called regarding upcoming procedure. Message left on patient's voicemail regarding appointment times.
--- NOTE | 2023-11-09 09:05 | P.PNAN_ITS ---
Anes - Initial Pre Proc Eval Procedure: Operation Date: 11/10/23 09:30 Proposed Procedures p Colonoscopy - Tyron Rocha MD Date/Time: 11/09/23 09:05 Surgeon: Tyron Rocha MD Pre Op Diagnosis: Hx colon polyps Patient Data Age: 57 Gender: F Height: 1.55 m Weight: 75 kg Allergies Allergy/AdvReac Type Severity Reaction Status Date / Time iohexol AdvReac Dyspnea / Verified 11/10/23 08:40 [From contrast - CT, X-RAY] SOB Home Medications Medication Instructions Recorded Confirmed Type budesonide-formoterol HFA 160 1 inh inhalation DAILY #10.2 grams 07/21/23 11/10/23 Rx mcg-4.5 mcg/actuation aerosol inhaler (Symbicort) albuterol sulfate 90 mcg/actuation 2 inh inhalation Q4-6H PRN 10/25/23 11/10/23 History aerosol inhaler (ProAir HFA) Shortness Of Breath levothyroxine 50 mcg tablet 50 mcg PO EVERY OTHER DAY 10/25/23 11/10/23 History levothyroxine 75 mcg tablet 75 mcg PO EVERY OTHER DAY 10/25/23 11/10/23 History loratadine 10 mg tablet 10 mg PO DAILY 10/25/23 11/10/23 History Patient hx anesthesia problems: none Family hx anesthesia problems: none Results Review: All pre-operative results and documents have been reviewed as part of the pre- operative evaluation. [facility] Past Medical History Medical History (Updated 11/09/23 @ 09:07 by Ronn Begum DO) Asthma Gastro-esophageal reflux disease without esophagitis Hypothyroidism (acquired) Mild intermittent asthma with acute exacerbation Obesity (BMI 30.0-34.9) Sleep apnea in adult CPAP Surgical History Surgical History History of tubal ligation Family History Family History Father Family history of diabetes mellitus in first degree relative Social History Social History Smoking status: Never smoker Alcohol intake: current Drinks per week: 2 Alcohol use details: WINE Substance use: never Substance use type: does not use Lack of Transportation: No Lack of Food: Never True Current Housing: I Have Housing Concerned About Future Housing: No Difficulty Paying Gas/Electric Bills: No Difficulty Paying for Meds: No Currently Unemployed: No Education: High School Diploma/GED Difficulty w/ Childcare or Family Care: No Living arrangements: with family Gender identity (if verbalized by the patient): Female Spiritual care concerns: No Anes - Eval Final PreProcedure Day of Procedure 11/09/23 09:05 Patient weight: obese Heart: regular rate and rhythm Lungs: clear to auscultation Airway: Mallampati scale class II Neurological: alert and oriented Last oral intake: >/= 8 hours ASA classification: III Emergent: no Anesthetic plan: proceed Anesthesia type and monitoring: general GIVS and standard monitoring Results Review: All pre-operative results and documents have been reviewed as part of the pre- operative evaluation. Informed Consent: The patient's anesthetic plan and its attendant risks and benefits were discussed with the patient/family/POA. Questions were solicited and answers provided to the satisfaction of the patient/family/POA.
[2023-11-10 08:41] VITALS: BP 142/79; PULSE 64; RESP 18; TEMP 36.4; O2SAT 99; BMI 29.8
[2023-11-10] MEDS: LACTATED RINGERS 1,000 ML 150 ML IV CONT (08:48)
[2023-11-10 09:40] VITALS: BP 101/64; PULSE 70; RESP 18; O2SAT 96
[2023-11-10 09:50] VITALS: BP 121/70; PULSE 62; RESP 16; O2SAT 97
[2023-11-10 10:00] VITALS: BP 125/79; PULSE 57; RESP 16; O2SAT 97
== END 2023-11-10 10:16 | disposition home or self-care (01) ==
PROVIDERS: PCP Family Medicine; Visit Provider Internal Medicine Gastroenterology
PROC: 0DJD8ZZ Inspection of Lower Intestinal Tract, Via Natural or Artificial Opening Endoscopic (ICD-10-PCS; CPT 45378; principal; 2023-11-10 09:30)
DX: Z12.11 Encounter for screening for malignant neoplasm of colon (principal); K57.30 Diverticulosis of large intestine without perforation or abscess without bleeding; Z86.010 Personal history of colon polyps; E03.9 Hypothyroidism, unspecified; J45.20 Mild intermittent asthma, uncomplicated; G47.30 Sleep apnea, unspecified; E66.9 Obesity, unspecified; Z68.29 Body mass index [BMI] 29.0-29.9, adult; Z79.51 Long term (current) use of inhaled steroids
CPT/HCPCS: 45378; J2704; J7120

== ENCOUNTER 2024-01-19 10:05 | Outpatient (CLI) | payer BC, SELFPAY ==
[2024-01-19 19:22] LABS: Alanine Aminotransferase 45 U/L (6-35); Albumin Level 4.4 g/dL (3.5-5.1); Alkaline Phosphatase 116 U/L (38-126); Anion Gap 7 mmol/L (8-16); Aspartate Amino Transferase 52 U/L (14-36); Bilirubin,Total 0.8 mg/dL (0.2-1.3); Blood Urea Nitrogen 9 mg/dL (7-17); Calcium 9.5 mg/dL (8.4-10.2); Carbon Dioxide 28 mmol/L (22-30); Chloride 104 mmol/L (98-107); Cholesterol 192 mg/dL (0-200); Estimated Glomerular Filt Rate > 60; Glucose 98 mg/dL (65-110); HDL Direct 35 mg/dL; Sodium 139 mmol/L (137-145); Triglycerides 158 mg/dL (<150)
[2024-01-19 19:33] LABS: LDL Cholesterol Direct 134 mg/dL
== END 2024-01-19 10:06 | disposition home or self-care (01) ==
LOC: ANHGOSHLAB 10:06
PROVIDERS: PCP Family Medicine; Visit Provider Family Medicine
DX: Z13.228 Encounter for screening for other metabolic disorders (principal); E11.9 Type 2 diabetes mellitus without complications; Z13.220 Encounter for screening for lipoid disorders; Z13.29 Encounter for screening for other suspected endocrine disorder
CPT/HCPCS: 36415; 80053; 80061; 83036; 84443

== ENCOUNTER 2024-02-16 09:14 | Outpatient (CLI) | payer BC, SELFPAY ==
--- NOTE | 2024-02-16 09:55 | EST_ITS ---
Patient Info Name: Svetlana Ugalde Age: 58 years : 1965 Gender: Female Ht: 61 in Wt: 164 lbs BSA: 1.82 m2 HR: 59 bpm BP: 140 / 73 mmHg Heart Rhythm: Sinus Rhythm Technical Quality: Good Exam Date: 02/16/2024 10:01 AM Exam Location: Echo Lab Patient Status: Outpatient Admit Date: 02/16/2024 Staff Ordering Physician: Renny Nash DO Rod Cup Filler: Azra Anderson RDCS Attending Provider: Referring Physician: Charity HURTADO; Exercise Technologist: Azra Anderson RDCS Exercise Physician: Chung Hogan DO Exam Type: CA stress echo Study Info Indications R07.9 - Chest pain, unspecified Treadmill exercise stress echocardiogram is performed. Summary 1. 1. Negative Taz exercise stress test for ischemic ST changes by ECG criteria. 2. 2. Good functional capacity, achieving 10 METs of workload. 3. 3. Baseline hypertension. 4. 4. Appropriate HR response to exercise. 5. 5. Appropriate HR recovery at 1 minute post exercise. 6. 6. Negative stress echocardiogram for ischemia by wall motion analysis. 7. 7. Patient informed of the above results. Stress Echo Findings Left Ventricle Appropriate increase in LV endocardial thickening with systole. Appropriate augmentation of contractility with systole. No wall motion abnormality. Left Ventricle Normal LV systolic function, no wall motion abnormamlity. Protocol: Taz Stress ECG Details Stage: REST Duration (min): 0 min : 50 sec Speed (mph): 0.0 Grade (%): 0 HR (bpm): 58 SBP (mmHg): 140 DBP (mmHg): 73 METS: --- Stage: REST Duration (min): 12 min : 56 sec Speed (mph): 0.0 Grade (%): 0 HR (bpm): 71 SBP (mmHg): 140 DBP (mmHg): 73 METS: --- Stage: STAGE 1 Duration (min): 1 min : 0 sec Speed (mph): 1.7 Grade (%): 10 HR (bpm): 87 SBP (mmHg): 140 DBP (mmHg): 73 METS: --- Stage: STAGE 1 Duration (min): 2 min : 0 sec Speed (mph): 1.7 Grade (%): 10 HR (bpm): 97 SBP (mmHg): 140 DBP (mmHg): 73 METS: --- Stage: STAGE 1 Duration (min): 3 min : 0 sec Speed (mph): 1.7 Grade (%): 10 HR (bpm): 96 SBP (mmHg): 202 DBP (mmHg): 86 METS: --- Stage: STAGE 2 Duration (min): 1 min : 0 sec Speed (mph): 2.5 Grade (%): 12 HR (bpm): 115 SBP (mmHg): 178 DBP (mmHg): 80 METS: --- Stage: STAGE 2 Duration (min): 2 min : 0 sec Speed (mph): 2.5 Grade (%): 12 HR (bpm): 115 SBP (mmHg): 173 DBP (mmHg): 80 METS: --- Stage: STAGE 2 Duration (min): 3 min : 0 sec Speed (mph): 2.5 Grade (%): 12 HR (bpm): 116 SBP (mmHg): 173 DBP (mmHg): 80 METS: --- Stage: STAGE 3 Duration (min): 1 min : 0 sec Speed (mph): 3.4 Grade (%): 14 HR (bpm): 130 SBP (mmHg): 184 DBP (mmHg): 83 METS: --- Stage: STAGE 3 Duration (min): 2 min : 0 sec Speed (mph): 3.4 Grade (%): 14 HR (bpm): 134 SBP (mmHg): 184 DBP (mmHg): 83 METS: --- Stage: STAGE 3 Duration (min): 2 min : 48 sec Speed (mph): 0.0 Grade (%): 0 HR (bpm): 136 SBP (mmH
== END 2024-02-16 09:15 | disposition home or self-care (01) ==
LOC: ANHCARD 09:15
PROVIDERS: PCP Family Medicine; Visit Provider Family Medicine
DX: R07.9 Chest pain, unspecified (principal)
CPT/HCPCS: 93351

== ENCOUNTER 2024-06-14 11:08 | Outpatient (CLI) | payer BC, SELFPAY ==
[2024-06-14 19:08] LABS: Alanine Aminotransferase 52 U/L (6-35); Albumin Level 4.5 g/dL (3.5-5.1); Alkaline Phosphatase 113 U/L (38-126); Anion Gap 9 mmol/L (4-12); Aspartate Amino Transferase 61 U/L (14-36); Bilirubin,Total 0.9 mg/dL (0.2-1.3); Blood Urea Nitrogen 12 mg/dL (7-17); Calcium 9.2 mg/dL (8.4-10.2); Carbon Dioxide 29 mmol/L (22-30); Chloride 100 mmol/L (98-107); Estimated Glomerular Filt Rate > 60; Glucose 101 mg/dL (65-110); Potassium 4.6 mmol/L (3.4-5.0); Sodium 138 mmol/L (137-145)
[2024-06-14 19:38] LABS: Free T4 Free Thyroxine 1.84 ng/mL (0.78-2.19)
[2024-06-14 20:09] LABS: Folic Acid 19.8 ng/mL (2.76->20)
== END 2024-06-14 11:09 | disposition home or self-care (01) ==
LOC: ANHGOSHLAB 11:09
PROVIDERS: PCP Family Medicine; Visit Provider Family Medicine
DX: E03.9 Hypothyroidism, unspecified (principal); E55.9 Vitamin D deficiency, unspecified; E53.8 Deficiency of other specified B group vitamins; Z13.228 Encounter for screening for other metabolic disorders
CPT/HCPCS: 36415; 80053; 82306; 82607; 82746; 84439; 84443

== ENCOUNTER 2024-09-04 08:24 | Outpatient (CLI) | payer BC, SELFPAY ==
[2024-09-04 17:37] LABS: Alanine Aminotransferase 38 U/L (6-35); Albumin Level 4.6 g/dL (3.5-5.1); Alkaline Phosphatase 129 U/L (38-126); Anion Gap 9 mmol/L (4-12); Aspartate Amino Transferase 57 U/L (14-36); Bilirubin,Total 0.5 mg/dL (0.2-1.3); Blood Urea Nitrogen 11 mg/dL (7-17); Calcium 9.4 mg/dL (8.4-10.2); Carbon Dioxide 29 mmol/L (22-30); Chloride 101 mmol/L (98-107); Cholesterol 200 mg/dL (0-200); Estimated Glomerular Filt Rate > 60; Glucose 101 mg/dL (65-110); HDL Direct 36 mg/dL; Potassium 4.3 mmol/L (3.4-5.0); Sodium 139 mmol/L (137-145); Triglycerides 186 mg/dL (<150)
[2024-09-04 18:03] LABS: LDL Cholesterol Direct 129 mg/dL
[2024-09-04 19:39] LABS: Free T4 Free Thyroxine 1.67 ng/mL (0.78-2.19)
== END 2024-09-04 08:25 | disposition home or self-care (01) ==
LOC: ANHGOSHLAB 08:25
PROVIDERS: PCP Family Medicine; Visit Provider Family Medicine
DX: E03.9 Hypothyroidism, unspecified (principal); Z13.220 Encounter for screening for lipoid disorders; Z13.228 Encounter for screening for other metabolic disorders; R73.03 Prediabetes
CPT/HCPCS: 36415; 80053; 80061; 83036; 84439; 84443